=== PATIENT | male | born 1955 | race Caucasian/White ===

== ENCOUNTER 2016-12-07 20:08 | Emergency (ER) | payer MEDICARE, MEDICAID ==
[~2016-12-07 20:08] MED LIST: ALBU6.7H INH; ALPR-138 PO; LORTA10 PO; NORV10TA PO; PRED50 PO; SOMA350T PO; TRAM50 PO
[2016-12-07 20:52] VITALS: BP 168/100; PULSE 78; RESP 20; TEMP 98.8; O2SAT 95
[2016-12-07] MEDS ORDERED: XANA2TAB2 PO (22:04)
[2016-12-07] MEDS ORDERED: AMLO10 PO (22:04)
[2016-12-07] MEDS ORDERED: HYDR-3583 PO (22:04)
[2016-12-07] MEDS ORDERED: MELO-1 PO (22:04)
[2016-12-07] MEDS ORDERED: TRAM50TA PO (22:04)
[2016-12-07] MEDS ORDERED: CLINDAMYCIN PHOS 600 MG/4 ML VIAL IM ONE (22:15)
[2016-12-07] MEDS ORDERED: KETOROLAC TROMETHAMINE 60 MG/2 ML (IM) VIAL IM ONE (22:15)
[2016-12-07] MEDS ORDERED: BACT2OIN TOPICAL (22:26)
[2016-12-07] MEDS ORDERED: CLIN1CAP5 PO (22:26)
--- NOTE | 2016-12-07 22:32 | PD ---
HPI Chief Complaint: Skin Problem Time Seen by Provider: 22:26 Travel History International Travel<30 days: No Contact w/Intl Traveler<30days: No Traveled to known affect area: No History of Present Illness HPI 61-year-old male that presents to the ED for evaluation of pain to the back of the head from possible insect bites. Per patient he noticed that there is bedbugs on his house. Per patient he noticed that he was getting bit on the back of his head. The patient is very itchy and for the past couple days his been noting that his has bumps that are slightly painful in the back of his head. He states that he initially that it was just dandruff and he applied some shampoo with minimal relief. Per patient he is concerned he is having an infection. Per patient tolerated takes pain medication for chronic pain and this is not really touching his pain. Per patient pain is 7 out of 10. He denies any other medical problems. He does have a history of allergy to minocin. Denies any chest or shortness of breath. No fevers chills or sweats. No other medical problems. Pain per patient does not radiate. This been ongoing for about 3 days now. PFSH Past Medical History Arthritis: Yes (left knee) Asthma: No Autoimmune Disease: No Blood Disorders: No Anxiety: Yes Depression: No Heart Rhythm Problems: No Cancer: No Cardiovascular Problems: No High Cholesterol: No Chemotherapy: No Chest Pain: No Congestive Heart Failure: No COPD: No Cerebrovascular Accident: No Diabetes: No Diminished Hearing: No GERD: No Glaucoma: No Headaches: No Hepatitis: No Hiatal Hernia: No Hypertension: Yes Kidney Stones: No Musculoskeletal: Yes (CHRONIC PAIN) Psychiatric: No Myocardial Infarction: No Radiation Therapy: No Renal Failure: No Seizures: No Sickle Cell Disease: No Sleep Apnea: No Thyroid Disease: No Ulcer: No Tetanus Vaccination: < 5 Years Influenza Vaccination: No PNEUMOCCOCAL Vaccine (Year): 2 Past Surgical History AICD: No Pacemaker: No Other Surgery: No Social History Alcohol Use: No Tobacco Use: Yes (1 PPD) Substance Use: No Allergies-Medications (Allergen,Severity, Reaction): Coded Allergies: Minocin (Verified Allergy, Intermediate, rash, 10/31/12) Reported Meds & Prescriptions Reported Meds & Active Scripts Active Bactroban Topical (Mupirocin) 2% Oint 1 Appl TOPICAL BID 14 Days Clindamycin (Clindamycin HCl) 150 Mg Cap 300 Mg PO Q6H 10 Days Reported Tramadol (Tramadol HCl) 50 Mg Tab 50 Mg PO Q6H PRN Meloxicam 15 Mg Tab 15 Mg PO DAILY Norvasc (Amlodipine Besylate) 10 Mg Tab 10 Mg PO DAILY Hydrocodone-Acetaminophen 10-325 mg Tab 1 Tab PO Q6H PRN Xanax (Alprazolam) 2 Mg Tab 2 Mg PO Q8H PRN Review of Systems Except as stated in HPI: all other systems reviewed are Neg Physical Exam Narrative GENERAL: SKIN: Warm and dry. Patient does have pustules on the back of the head with yellow crusting. Some inflammatory changes to the scalp on the back of the head noted with raised erythematous skin. Yellow crusting noted. No obvious purulence however noted. HEAD: Atraumatic. Normocephalic. EYES: Pupils equal and round. No scleral icterus. No injection or drainage. ENT: No nasal bleeding or discharge. Mucous membranes pink and moist. Tongue is midline. No uvula deviation. NECK: Trachea midline. No JVD. CARDIOVASCULAR: Regular rate and rhythm. RESPIRATORY: No accessory muscle use. Clear to auscultation. Breath sounds equal bilaterally. GASTROINTESTINAL: Abdomen soft, non-tender, nondistended. Hepatic and splenic margins not palpable. MUSCULOSKELETAL: Extremities without clubbing, cyanosis, or edema. No obvious deformities. NEUROLOGICAL: Awake and alert. No obvious cranial nerve deficits. Motor grossly within normal limits. Five out of 5 muscle strength in the arms and legs. Normal speech. PSYCHIATRIC: Appropriate mood and affect; insight and judgment normal. Data Data Last Documented VS Vital Signs Date Time Temp Pulse Resp B/P Pulse Ox O2 Delivery O2 Flow Rate FiO2 12/07/16 20:52 98.8 78 20 168/100 95 Orders Clindamycin Inj (Cleocin Inj) (12/07/16 22:15) Ketorolac Inj (Toradol Inj) (12/07/16 22:15) [facility] Medical Decision Making Medical Screen Exam Complete: Yes Emergency Medical Condition: Yes Medical Record Reviewed: Yes Differential Diagnosis Impetigo versus cellulitis versus pustule Narrative Course 61-year-old male that presents to the ED for evaluation of possible infected insect bites on the back of his head. Patient was properly examined and was found to have signs and symptoms very consistent what appears to be impetigo likely from staph infection. Unclear etiology as to the house he had this other than possible bug bites. At this time secondary to the severity of the area that has infection at the recommends starting him clindamycin and Toradol for pain. Patient is in agreement with this. Patient will be given a prescription for clindamycin and Bactroban to apply to the wound. Told to get recheck in 48 hours. See ED worsening symptoms. Diagnosis Primary Impression: Impetigo Patient Instructions: General Instructions Additional Instructions: Take medication as prescribed. Follow-up with PCP. See ED worsening symptoms. Recheck in 48 hours. Apply warm compresses to the back of the head to help with the pain or ice. Med/Other Pt SpecificInfo: Prescription(s) given Scripts Mupirocin Topical (Bactroban Topical)2% Oint1 Appl TOPICAL BID 14 Days Prov:Demian Pearson MD 12/07/16 Clindamycin 150 Mg [id number] Mg PO Q6H 10 Days Prov:Demian Pearson MD 12/07/16 Disposition: 01 DISCHARGE HOME Condition: Stable Denys Bowman Dec 07, 2016 22:31
== END 2016-12-07 23:00 | disposition home or self-care (01) ==
LOC: PHED 20:08 → PHEFT 23:00
DX: L01.00 Impetigo, unspecified (principal); I10 Essential (primary) hypertension; F41.9 Anxiety disorder, unspecified; F17.200 Nicotine dependence, unspecified, uncomplicated
CPT/HCPCS: 96372; 99281; J1885